=== PATIENT | female | born 1985 | race Caucasian/White ===

== ENCOUNTER 2022-05-02 06:00 | Inpatient (IN) | payer BC ==
[~2022-05-02 06:00] MED LIST: HYDROmorphone 0.5 MG/0.5 ML Syringe IVPUSH ONE
[2022-05-02] MEDS ORDERED: Ketamine 18 MG in Sodium Chloride 0.9% 19.82 ML IV SCH (07:30)
[2022-05-02] MEDS ORDERED: Ketamine 500 MG/5 ML MDV IV SCH (07:30)
[2022-05-02] MEDS ORDERED: Scopolamine 1.5 MG Transdermal Patch TOP SCH (08:50)
[2022-05-02] MEDS ORDERED: Acetaminophen 500 MG Tab PO SCH (08:50)
[2022-05-02] MEDS ORDERED: Celecoxib 200 MG Cap PO SCH (08:50)
[2022-05-02] MEDS ORDERED: Dextrose 5%-Lactated Ringers 1,000 ML IV SCH (09:35)
[2022-05-02] MEDS ORDERED: cefOXitin 2 GM Vial ONE (10:52)
[2022-05-02] MEDS ORDERED: cefOXitin 2 GM in Sodium Chloride 0.9% 50 ML IV SCH (11:00)
[2022-05-02] MEDS ORDERED: Propofol 200 MG/20 ML SDV ONE (11:15)
[2022-05-02] MEDS ORDERED: Ondansetron 4 MG/2 ML SDV ONE (11:15)
[2022-05-02] MEDS ORDERED: Dexamethasone 4 MG/ML SDV ONE (11:15)
[2022-05-02] MEDS ORDERED: Neostigmine Methylsulfate 1 MG/ML 5 ML Syringe ONE (11:15)
[2022-05-02] MEDS ORDERED: Succinylcholine 200 MG/10 ML MDV ONE (11:15)
[2022-05-02] MEDS ORDERED: Rocuronium 50 MG/5 ML Vial ONE ×2 (11:15)
[2022-05-02] MEDS ORDERED: Glycopyrrolate 0.2 MG/ML 5 ML MDV ONE (11:15)
[2022-05-02] MEDS ORDERED: Dextrose 5%-Lactated Ringers 1,000 ML IV ONE (11:54)
[2022-05-02] MEDS ORDERED: Lactated Ringers 1,000 ML IV ONE ×2 (11:54→22:34)
[2022-05-02] MEDS ORDERED: oxyCODONE 5 MG Tab PO ONE (14:20)
[2022-05-02] MEDS ORDERED: HYDROmorphone 0.5 MG/0.5 ML Syringe IVPUSH ONE (15:26)
[2022-05-02] MEDS ORDERED: Ondansetron 4 MG/2 ML SDV IVPUSH ONE (15:30)
[2022-05-02] MEDS ORDERED: Pantoprazole 40 MG Vial IV ONE (15:55)
[2022-05-02] MEDS ORDERED: cefOXitin 2 GM in Sodium Chloride 0.9% 50 ML IV ONE ×2 (16:00→22:34)
[2022-05-02] MEDS ORDERED: MVI, Adult with Vitamin K 10 ML, Zinc/Copper/Manganese/Selenium 1 ML, Thiamine 200 MG i... IV ONE ×4 (16:45)
[2022-05-02] MEDS ORDERED: Heparin Sodium 5,000 Units/ML Vial SUBCUT ONE (20:32)
[2022-05-03] MEDS ORDERED: oxyCODONE 5 MG Tab PO ONE ×3 (02:05→18:15)
[2022-05-03] MEDS ORDERED: Iopamidol 612 MG/ML 50 ML SDV PO PRN (02:35)
[2022-05-03] MEDS ORDERED: cefOXitin 2 GM in Sodium Chloride 0.9% 50 ML IV ONE (03:50)
[2022-05-03] MEDS ORDERED: Lactated Ringers 1,000 ML IV ONE ×2 (05:15→17:15)
[2022-05-03] MEDS ORDERED: Heparin Sodium 5,000 Units/ML Vial SUBCUT ONE ×2 (08:00→20:00)
[2022-05-03] MEDS ORDERED: Celecoxib 200 MG Cap PO ONE ×2 (09:00→21:00)
[2022-05-03] MEDS ORDERED: Escitalopram 20 MG Tab PO ONE (09:00)
[2022-05-03] MEDS ORDERED: Pantoprazole 40 MG Vial IV ONE (15:36)
[2022-05-03] MEDS ORDERED: MVI, Adult with Vitamin K 10 ML, Zinc/Copper/Manganese/Selenium 1 ML, Thiamine 200 MG i... IV ONE ×4 (17:00)
[2022-05-04] MEDS ORDERED: oxyCODONE 5 MG Tab PO ONE (07:12)
[2022-05-04] MEDS ORDERED: Ketamine 18 MG in Sodium Chloride 0.9% 19.82 ML IV SCH (07:30)
[2022-05-04] MEDS ORDERED: Ketamine 500 MG/5 ML MDV IV SCH (07:30)
[2022-05-04] MEDS ORDERED: Heparin Sodium 5,000 Units/ML Vial SUBCUT ONE (08:00)
[2022-05-04] MEDS ORDERED: Escitalopram 20 MG Tab PO ONE (09:00)
[2022-05-04] MEDS ORDERED: Celecoxib 200 MG Cap PO ONE (09:00)
[2022-06-06 11:09] LABS: ESTIMATED GFR 114 mL/min (>60)
[2022-06-06 11:10] LABS: HEMOGLOBIN A1C 6.1 % (4.5-6.2)
== END 2022-05-04 11:55 | disposition home or self-care (01) | DRG 403 ==
LOC: JP.ZCENSUS 06:00
PROVIDERS: ADMIT Surgery; ATTEND Surgery
PROC: 0D194ZB Bypass Duodenum to Ileum, Percutaneous Endoscopic Approach (ICD-10-PCS; principal; 2022-05-02)
PROC: 0BQT4ZZ Repair Diaphragm, Percutaneous Endoscopic Approach (ICD-10-PCS; 2022-05-02)
PROC: 0FB24ZZ Excision of Left Lobe Liver, Percutaneous Endoscopic Approach (ICD-10-PCS; 2022-05-02)
DX: E66.01 Morbid (severe) obesity due to excess calories (principal); Z68.42 Body mass index [BMI] 45.0-49.9, adult; E78.5 Hyperlipidemia, unspecified; E03.9 Hypothyroidism, unspecified; R16.0 Hepatomegaly, not elsewhere classified; K44.9 Diaphragmatic hernia without obstruction or gangrene; F41.9 Anxiety disorder, unspecified; F32.A Depression, unspecified; Z72.0 Tobacco use; Z79.890 Hormone replacement therapy; Z79.84 Long term (current) use of oral hypoglycemic drugs; Z79.899 Other long term (current) drug therapy; Z88.1 Allergy status to other antibiotic agents
CPT/HCPCS: 36415; 74240; 74240-26; 80053; 81025; 82947; 83036; 83735; 84100; 86850; 86900; 86901; 88307; 88313; 88342; 94762; A9270-GY; C1713; C9113; J0171; J0330; J0694; J1100; J1170; J1644; J2405; J2704; J2710; J2795; J3010; J3411; J3490; J7120; J7121; Q9967